=== PATIENT | female | born 1995 | race Hispanic/Latino ===

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

== ENCOUNTER 2017-05-12 19:48 | Emergency (ER) | payer OTHER ==
--- NOTE | 2017-05-12 21:08 | ERPHSYRPT ---
- History of Present Illness Time Seen by Provider: 05/12/17 21:00 Source: patient Exam Limitations: no limitations Physician History: 22 y/o female comes to the ER with complaints of lower abdominal cramping and vaginal bleeding with mucus that started last night. Pt's last period was March 26. Pt took a few tests that were both negative and positive. Pt describes the pain as cramping, as high as 5/10, intermittent, with radiation to back and pt has not taken any pain meds. Pt also admits to having polyuria but no dysuria, hematuria, nausea, vomiting, diarrhea, or constipation. Timing/Duration: yesterday Activites at Onset: none Quality: cramping Onset Location: RLQ, LLQ Pain Radiation: back Severity of Pain-Max: moderate Severity of Pain-Current: none Prior abdominal problems: none Sexual intercourse history: single partner Associated Symptoms: abdominal pain Allergies/Adverse Reactions: No Known Drug Allergies Allergy (Unverified 09/07/16 14:51) Hx Tetanus, Diphtheria Vaccination/Date Given: Yes (up to date) Hx Influenza Vaccination/Date Given: No Hx Pneumococcal Vaccination/Date Given: No - Review of Systems Constitutional: No Fever, No Chills Eyes: No Symptoms Ears, Nose, & Throat: No Symptoms Respiratory: No Cough, No Dyspnea Cardiac: No Chest Pain, No Edema, No Syncope Abdominal/Gastrointestinal: Abdominal Pain, No Nausea, No Vomiting, No Diarrhea Genitourinary Symptoms: Frequency, Vaginal Bleeding, No Dysuria Musculoskeletal: No Back Pain, No Neck Pain Skin: No Rash Neurological: No Dizziness, No Focal Weakness, No Sensory Changes Psychological: No Symptoms Endocrine: No Symptoms All Other Systems: Reviewed and Negative - Past Medical History Pertinent Past Medical History: No - Past Surgical History Past Surgical History: Yes Musculoskeletal: Orthopedic Surgery Other Surgical History: arm surgery - Social History Smoking Status: Never smoker Exposure to second hand smoke: No Drug Use: none Patient Lives Alone: No - Nursing Vital Signs Nursing Vital Signs: Initial Vital Signs Temperature 97.5 F 05/12/17 21:05 Pulse Rate 60 05/12/17 21:05 Respiratory Rate 18 05/12/17 21:05 Blood Pressure 145/61 05/12/17 21:05 O2 Sat by Pulse Oximetry 100 05/12/17 21:05 Pain Scale Pain Intensity 4 - Physical Exam General Appearance: no apparent distress, alert Eye Exam: PERRL/EOMI, eyes nml inspection Ears, Nose, Throat Exam: normal ENT inspection, TMs normal, pharynx normal, moist mucous membranes Neck Exam: normal inspection, non-tender, supple, full range of motion Respiratory Exam: normal breath sounds, lungs clear, No respiratory distress Cardiovascular Exam: regular rate/rhythm, normal heart sounds, normal peripheral pulses Gastrointestinal/Abdomen Exam: soft, normal bowel sounds, No tenderness, No distention, No mass Pelvic Exam: not done Back Exam: normal inspection, normal range of motion, No CVA tenderness, No vertebral tenderness Extremity Exam: normal inspection, normal range of motion, pelvis stable Neurologic Exam: alert, oriented x 3, cooperative, wind energy technician II-XII nml as tested, normal mood/affect, sensation nml, No motor deficits Skin Exam: normal color, warm, dry Lymphatic Exam: No adenopathy - Course Nursing assessment & vital signs reviewed: Yes Ordered Tests: Active Orders 24 hr Category Date Time Status CBC W DIFF Stat Lab 05/12/17 21:15 Completed CMP Stat Lab 05/12/17 21:15 Received CULTURE,URINE Stat Lab 05/12/17 21:15 Received HCG QUALITATIVE,SERUM Stat Lab 05/12/17 21:15 Completed Manual Differential NC Stat Lab 05/12/17 21:15 Completed UA W/ MICROSCOPIC Stat Lab 05/12/17 21:15 Completed Lab/Rad Data: Laboratory Result Diagrams 05/12/17 21:15 Laboratory Results 05/12/17 05/12/17 05/12/17 Range/Units 21:15 21:15 21:15 WBC 10.3 (4.0-10.5) K/mm3 RBC 4.91 (4.1-5.4) M/mm3 Hgb 13.9 (12.0-16.0) gm/dl Hct 42.5 (35-47) % MCV 86.6 (78-100) fl MCH 28.3 (26-32) pg MCHC 32.7 (32-36) g/dl RDW 12.9 (11.5-14.0) % Plt Count 515 H (150-450) K/mm3 MPV 9.5 (6-9.5) fl Segmented Neutrophils 55 (36.0-66.0) % Lymphocytes (Manual) 34 (24-44) % Monocytes (Manual) 4 (0.0-12.0) % Eosinophils (Manual) 1 (0.00-3.0) % Differential Comment NORMAL Atypical Lymphocytes 6 % Platelet Estimate NORMAL (NORMAL) Serum , Qual NEGATIVE (Negative) Ur Collection Type VOID Urine Color YELLOW (YELLOW) Urine Appearance HAZY (CLEAR) Urine pH 7.0 (5-6) Ur Specific [place] 1.010 (1.005-1.025) Urine Protein NEGATIVE (Negative) Urine Ketones NEGATIVE (NEGATIVE) Urine Blood 250 (0-5) Ricardo/ul Urine Nitrite NEGATIVE (NEGATIVE) Urine Bilirubin NEGATIVE (NEGATIVE) Urine Urobilinogen NORMAL (0-1) mg/dL Ur Leukocyte Esterase TRACE (NEGATIVE) Urine Microscopic RBC 5-10 (0-2) /HPF Urine Microscopic WBC 5-10 (0-5) /HPF Ur Epithelial Cells MANY (FEW) /HPF Urine Bacteria MODERATE (NEGATIVE) /HPF Urine Mucus MODERATE (NEGATIVE) /HPF Urine Culture Reflexed YES (NO) Urine Glucose NEGATIVE (NEGATIVE) mg/dL Specimen Received 05/12/178 - Progress Progress: improved Progress Note: 05/12/17 21:50 Pt has no pain and no complaints of vaginal bleeding. The HCG is negative. The rest of the labs are within normal limits. Pt does admit that she recently changed her control and the bleeding may be due to breakthrough bleeding. Pt will need to F/U with Dr Blanchard. - Departure Time of Disposition: 21:51 Departure Disposition: Home Clinical Impression: Vaginal bleeding Condition: Stable Critical Care Time: No Referrals: AURA RIVERA [Primary Care Provider] - ROBYN BLANCHARD [ACTIVE STAFF] - Instructions: Acute Abdomen (Belly Pain), Adult (DC) Additional Instructions: Call Dr Blanchard's office in the morning to set up an appointment. Return to the ER if you should have worsening vaginal bleeding, abdominal pain, nausea or vomiting.
[2017-05-12 21:13] VITALS: O2SAT 100
[2017-05-12 21:19] LABS: Granulocyte Absolute (ANC) 5.19 (1.4-6.9); Hematocrit 42.5 % (35-47); Hemoglobin 13.9 gm/dl (12.0-16.0); Mean Cell Volume 86.6 fl (78-100); Mean Corpuscular Hemoglobin 28.3 pg (26-32); Mean Corpuscular Hgb Concent. 32.7 g/dl (32-36); Mean Platelet Volume 9.5 fl (6-9.5); Platelet Count 515 K/mm3 (150-450); Red Blood Count 4.91 M/mm3 (4.1-5.4); Red Cell Distribution Width 12.9 % (11.5-14.0); White Blood Count 10.3 K/mm3 (4.0-10.5)
[2017-05-12 21:27] LABS: Appearance HAZY (CLEAR)
[2017-05-12 21:28] LABS: Bacteria MODERATE /HPF (NEGATIVE); Bilirubin NEGATIVE (NEGATIVE); Blood 250 Ery/ul (0-5); Epithelial Cells MANY /HPF (FEW); Glucose NEGATIVE (NEGATIVE); Ketones NEGATIVE (NEGATIVE); Leukocyte Esterase TRACE (NEGATIVE); Mucus MODERATE /HPF (NEGATIVE); Nitrite NEGATIVE (NEGATIVE); Protein,Urine Dip NEGATIVE (Negative); Urobilinogen NORMAL mg/dL (0-1)
[2017-05-12 21:41] LABS: ALBUMIN 3.8 g/dL (3.4-5.0); ALKALINE PHOSPHATASE 110 U/L (46-116); ANION GAP 11.8 MEQ/L (5-15); ATYPICAL LYMPHS 6 %; BLOOD UREA NITROGEN 11 mg/dL (9-20); CHLORIDE 102 mEq/L (98-107); Calcium 9.1 mg/dL (8.5-10.1); Carbon Dioxide 30.9 mEq/L (21-32); Creatinine 1 0.79 mg/dl (0.55-1.30); EST GLOMERULAR FILTRATION RATE > 60 ML/MIN; Eosinophil 1 % (0.00-3.0); Glucose 93 MG/DL (70-110); Lymphocytes 34 % (24-44); Monocyte 4 % (0.0-12.0); Neutrophils 55 % (36.0-66.0); Platelet Estimate NORMAL (NORMAL); Potassium 3.9 mEq/L (3.5-5.1); SGOT/AST 17 U/L (15-37); SGPT/ALT 23 U/L (12-78); SODIUM 141 mEq/L (136-145); Total Cells Counted 100; Total Protein 8.5 gm/dL (6.4-8.2)
[2017-05-12 22:07] VITALS: BP 132/58; PULSE 76
== END 2017-05-12 22:00 | disposition home or self-care (01) ==
LOC: ED 19:48
DX: N93.9 Abnormal uterine and vaginal bleeding, unspecified (principal); R10.30 Lower abdominal pain, unspecified
CPT/HCPCS: 36415; 80053; 81000; 84703; 85025; 87086; 99283